=== PATIENT | male | born 1995 | race Caucasian/White ===

== ENCOUNTER 2017-04-15 16:22 | Emergency (ER) | payer OTHER ==
[~2017-04-15] VITALS: Ht 172.7 cm; Wt 81.8 kg
[2017-04-15 16:23] VITALS: BP 152/85
== END 2017-04-15 17:18 | disposition home or self-care (01) ==
LOC: M ED 16:22
DX: R10.33 Periumbilical pain (principal)

== ENCOUNTER 2018-03-21 16:17 | Emergency (ER) | payer OTHER ==
[2018-03-21 17:24] LABS: KETONE, URINE AUTO RFX TRACE mg/dL (NEGATIVE); LEUKOCYTE ESTERASE UR AUTO RFX NEGATIVE (NEGATIVE); MUCUS, URINE RFX SMALL (NEGATIVE); NITRITE, URINE AUTO RFX NEGATIVE (NEGATIVE); RBC, URINE AUTO RFX 1 /HPF (0-3); SPECIFIC GRAVITY UR AUTO RFX 1.013 (1.002-1.035); SQUAM EPITHELIAL CELL UR AURFX 0 /HPF (0-6); WBC, URINE AUTO RFX 0 /HPF (0-3)
[2018-03-21 17:58] LABS: BASO % 0.4 % (0.0-1.0); EOS # 0.1 10^3/uL (0.0-0.50); EOS % 0.5 % (0.0-3.0); HEMATOCRIT 46.8 % (42.0-52.0); HEMOGLOBIN 16.8 g/dl (13.5-17.5); IMMATURE GRANULOCYTE % 0.2 % (0-3.0); LYMPH # 2.2 10^3/uL (1.5-6.5); LYMPH % 22.3 % (24.0-44.0); MEAN CORPUSCULAR HEMOGLOBIN 30.4 pg (27.0-33.0); MEAN CORPUSCULAR HGB CONC 35.9 g/dl (32.0-36.5); MEAN CORPUSCULAR VOLUME 84.8 fl (80.0-96.0); MONO # 0.7 10^3/uL (0.0-0.8); MONO % 6.6 % (0.0-5.0); NEUTROPHILS # 6.9 10^3/uL (1.8-7.7); PLATELET COUNT, AUTOMATED 259 10^3/uL (150-450); RED BLOOD COUNT 5.52 10^6/uL (4.30-6.10); RED CELL DISTRIBUTION WIDTH 11.7 % (11.5-14.5); WHITE BLOOD COUNT 9.8 10^3/uL (4.0-10.0)
[2018-03-21 18:32] LABS: ALBUMIN 4.5 GM/DL (3.2-5.2); ALBUMIN/GLOBULIN RATIO 1.05 (1.00-1.93); ALKALINE PHOSPHATASE 101 U/L (45-117); ALT/SGPT 24 U/L (12-78); AMYLASE 38 U/L (25-115); ANION GAP 8 MEQ/L (8-16); AST/SGOT 15 U/L (7-37); BILIRUBIN,DIRECT 0.2 MG/DL (0.0-0.2); BILIRUBIN,TOTAL 1.1 MG/DL (0.2-1.0); BLOOD UREA NITROGEN 12 MG/DL (7-18); CALCIUM LEVEL 9.4 MG/DL (8.5-10.1); CARBON DIOXIDE LEVEL 29 MEQ/L (21-32); CHLORIDE LEVEL 103 MEQ/L (98-107); CREATININE FOR GFR 1.04 MG/DL (0.70-1.30); GAMMA GLUTAMYLTRANSPEPTIDASE 29 U/L (15-85); GLUCOSE, FASTING 93 MG/DL (70-100); LIPASE 79 U/L (73-393); POTASSIUM SERUM 3.8 MEQ/L (3.5-5.1); SODIUM LEVEL 140 MEQ/L (136-145); TOTAL PROTEIN 8.8 GM/DL (6.4-8.2)
== END 2018-03-21 19:59 | disposition home or self-care (01) ==
LOC: M ED 16:17
DX: R10.9 Unspecified abdominal pain (principal)
CPT/HCPCS: 76705

== ENCOUNTER → 2020-09-08 | Outpatient (CLI) | payer SELFPAY | LOC: M LABSMTC 09:45 | PROVIDERS: ATTEND Pediatrics | DX: Z20.828 Contact with and (suspected) exposure to other viral communicable diseases (principal) ==

== ENCOUNTER → 2020-10-19 | Outpatient (CLI) | payer SELFPAY | LOC: M LABSMTC 09:37 | PROVIDERS: ATTEND Pediatrics | DX: Z20.822 Contact with and (suspected) exposure to COVID-19 (principal) ==

== ENCOUNTER → 2020-12-30 | Outpatient (CLI) | payer SELFPAY | LOC: M LABSMTC 09:51 | PROVIDERS: ATTEND Pediatrics | DX: Z11.52 Encounter for screening for COVID-19 (principal) ==

== ENCOUNTER 2021-04-30 10:46 | Emergency (ER) | payer OTHER, SELFPAY ==
[~2021-04-30] VITALS: Ht 175.3 cm; Wt 79.0 kg
[2021-04-30] MEDS ORDERED: CYCL5TAB PO (13:20)
[2021-04-30] MEDS ORDERED: IBUP-1022 PO (13:20)
[2021-04-30] MEDS ORDERED: ACET-683 PO (13:20)
[2021-04-30 13:29] VITALS: BP 139/89
== END 2021-04-30 13:48 | disposition home or self-care (01) ==
LOC: M ED 10:46
DX: M54.5 Low back pain (principal)

== ENCOUNTER 2022-04-03 00:49 | Emergency (ER) | payer BC, SELFPAY ==
[~2022-04-03] VITALS: Ht 175.3 cm; Wt 81.9 kg
[~2022-04-03 00:49] MED LIST: ACET-683 PO; CYCL5TAB PO; IBUP-1022 PO
[2022-04-03] MEDS ORDERED: PERI0.126 PO (07:01)
[2022-04-03 07:06] VITALS: BP 139/82
== END 2022-04-03 07:10 | disposition home or self-care (01) ==
LOC: M ED 00:49
DX: K05.00 Acute gingivitis, plaque induced (principal)